=== PATIENT | female | born 1950 | race Caucasian/White ===

== ENCOUNTER → 2018-06-29 | Outpatient (CLI) | payer BC, MEDICARE, SELFPAY ==
[2018-06-29 14:29] LABS: Prothrombin Time (Protime)PT. 13.2 SECONDS (11.7-14.9)
[2018-06-29 14:30] LABS: Partial Thromboplast Time 30.4 Seconds (24.1-36.2)
[2018-06-29 14:37] LABS: AST(SGOT) 27 U/L (15-37); Alanine Aminotransfer ALT/SGPT 33 U/L (13-56); Albumin, Serum 3.9 g/dL (3.2-5.0); Alkaline Phosphatase 63 U/L (45-117); Bilirubin, Direct 0.13 mg/dL (0.00-0.30); Ferritin 269 ng/mL (8-252); Globulin 4.2 g/dL (2.2-4.2); Protein, Total 8.1 g/dL (6.4-8.2)
[2018-06-30 16:09] LABS: ANTINUCLEAR ANTIBODIES DIRECT Negative (Negative)
[2018-07-01 12:34] LABS: AFP, Tumor Marker 1.7 ng/mL (0.0-8.3); Alpha Antitrypsin Serum 138 mg/dL (90-200); Anti-Mitochondrial AB <20.0 Units (0.0-20.0); Anti-Smooth Muscle ABS 6 Units (0-19)
== END | disposition home or self-care (01) ==
LOC: MTLAB 12:38
PROVIDERS: Family Provider Family Medicine; PCP Family Medicine; Referring Provider Internal Medicine Gastroenterology; Visit Provider Internal Medicine Gastroenterology
DX: K75.9 Inflammatory liver disease, unspecified (principal); K74.60 Unspecified cirrhosis of liver
CPT/HCPCS: 36415; 80076; 82103; 82105; 82728; 83516; 85610; 85730; 86038